=== PATIENT | female | born 1965 | race Caucasian/White ===

== ENCOUNTER 2021-01-21 17:20 | Emergency (ER) | payer OTHER ==
[~2021-01-21] VITALS: Ht 165.1 cm; Wt 86.2 kg
[2021-01-21] MEDS ORDERED: ATORVASTATIN CA40 MG PO (17:50)
[2021-01-21] MEDS ORDERED: ADVAIR HFA 115-12 GM (17:50)
[2021-01-21] MEDS ORDERED: VENTOLIN HFA18 GM INH (17:50)
[2021-01-21] MEDS ORDERED: AMLODIPINE BESYL5 MG PO (17:50)
[2021-01-21] MEDS ORDERED: FLUTICASONE PRO16 GM NAS (17:51)
[2021-01-21] MEDS ORDERED: HYDROXYZINE HCL25 MG PO (17:51)
[2021-01-21] MEDS ORDERED: LEVOTHYROXINE175 MCG PO (17:51)
[2021-01-21] MEDS ORDERED: CARVEDILOL6.25 MG PO (17:51)
[2021-01-21] MEDS ORDERED: GLYBURIDE5 MG PO (17:51)
[2021-01-21] MEDS ORDERED: LO-DOSE ASPIRIN81 MG PO (17:52)
[2021-01-21] MEDS ORDERED: VITAMIN D21250 MCG (17:52)
[2021-01-21] MEDS ORDERED: NYSTATIN-TRIAMC15 GM (17:52)
[2021-01-21] MEDS ORDERED: CHANTIX1 MG PO (17:52)
[2021-01-21] MEDS ORDERED: LISINOPRIL10 MG PO (17:52)
[2021-01-21] MEDS ORDERED: METFORMIN HCL1000 MG PO (17:52)
[2021-01-21] MEDS ORDERED: ZOFRAN4 MG PO (19:59)
== END 2021-01-21 20:08 | disposition home or self-care (01) ==
LOC: ED 17:20
DX: K52.9 Noninfective gastroenteritis and colitis, unspecified (principal); Z20.822 Contact with and (suspected) exposure to COVID-19; I25.2 Old myocardial infarction; E11.9 Type 2 diabetes mellitus without complications; I10 Essential (primary) hypertension; F17.200 Nicotine dependence, unspecified, uncomplicated; Z86.73 Personal history of transient ischemic attack (TIA), and cerebral infarction without residual deficits; Z88.0 Allergy status to penicillin; Z79.899 Other long term (current) drug therapy; Z79.84 Long term (current) use of oral hypoglycemic drugs; Z79.82 Long term (current) use of aspirin
CPT/HCPCS: 71045; 80053; 81001; 83735; 85025; 96374; 96376; 99284-25; C9803; J2405; J7030; U0003

== ENCOUNTER 2021-06-22 15:28 | Emergency (ER) | payer OTHER ==
[~2021-06-22] VITALS: Ht 165.1 cm; Wt 77.1 kg
[~2021-06-22 15:28] MED LIST: ADVAIR HFA 115-12 GM; AMLODIPINE BESYL5 MG PO; ATORVASTATIN CA40 MG PO; CARVEDILOL6.25 MG PO; CHANTIX1 MG PO; FLUTICASONE PRO16 GM NAS; GLYBURIDE5 MG PO; HYDROXYZINE HCL25 MG PO; LEVOTHYROXINE175 MCG PO; LISINOPRIL10 MG PO; LO-DOSE ASPIRIN81 MG PO; METFORMIN HCL1000 MG PO; NYSTATIN-TRIAMC15 GM; VENTOLIN HFA18 GM INH; VITAMIN D21250 MCG; ZOFRAN4 MG PO
[2021-06-22] MEDS ORDERED: PROZAC20 MG PO (15:55)
[2021-06-22] MEDS ORDERED: REGLAN10 MG PO (17:47)
[2021-06-22] MEDS ORDERED: ONDANSETRON ODT8 MG PO (17:47)
== END 2021-06-22 18:46 | disposition home or self-care (01) ==
LOC: ED 15:28
DX: K29.00 Acute gastritis without bleeding (principal); E11.9 Type 2 diabetes mellitus without complications; I10 Essential (primary) hypertension; I25.2 Old myocardial infarction; Z86.73 Personal history of transient ischemic attack (TIA), and cerebral infarction without residual deficits; Z85.850 Personal history of malignant neoplasm of thyroid; F17.200 Nicotine dependence, unspecified, uncomplicated; Z88.0 Allergy status to penicillin; Z79.51 Long term (current) use of inhaled steroids; Z79.899 Other long term (current) drug therapy; Z79.84 Long term (current) use of oral hypoglycemic drugs; Z79.890 Hormone replacement therapy; Z79.82 Long term (current) use of aspirin
CPT/HCPCS: 80053; 81001; 83690; 85025; 96374; 96375; 99284-25; J1790; J2405; J7030

== ENCOUNTER 2021-06-25 19:39 | Emergency (ER) | payer OTHER ==
[~2021-06-25] VITALS: Ht 165.1 cm; Wt 73.6 kg
[~2021-06-25 19:39] MED LIST changes: +ONDANSETRON ODT8 MG PO; +PROZAC20 MG PO; +REGLAN10 MG PO
--- OUTSIDE RECORDS SUMMARY | 2021-06-25 19:40 | XMS ---
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 E.D. VISIT COUNT (12 MO.) 1 [facility] TOTAL 4 NOTE: Visits indicate total known visits. ED/UCC VISIT TRACKING (12 MO.) 06/25/2021 19:39 [facility] [place] TYPE: Emergency COMPLAINT: - WEAKNESS 06/22/2021 15:29 [facility] [place] TYPE: Emergency COMPLAINT: - N/V 01/21/2021 17:22 [facility] [place] TYPE: Emergency COMPLAINT: - VOMITING, DIARRHEA DIAGNOSES: - medical terminologist (current) use of oral hypoglycemic drugs - Allergy status to penicillin - Noninfective gastroenteritis and colitis, unspecified - Nicotine dependence, unspecified, uncomplicated - medical terminologist (current) use of aspirin - Essential (primary) hypertension - Type 2 diabetes mellitus without complications - Personal history of transient ischemic attack (TIA), and cerebral infarction without residual deficits - Old myocardial infarction - Other terminal operations supervisor (current) drug therapy - Nausea with vomiting, unspecified [facility] DIAGNOSES: - Unspecified abdominal pain - BLEEDING IN RECTUM, VOMITING - Nausea with vomiting, unspecified INPATIENT VISIT TRACKING (12 MO.) No inpatient visits to display in this time frame [email or web address]
[2021-06-26] MEDS ORDERED: CAPSAICIN60 GM TOP (01:25)
--- NOTE | 2021-06-28 11:25 | EKG ---
[facility] [address] [facility] [place] [address] Signed Sinus rhythm with premature supraventricular complexes Possible Anterolateral infarct , age undetermined Abnormal ECG No previous ECGs available Confirmed by PEREZ MONTEMAYOR MD ([id number]) on 06/28/2021 11:25:10 AM Electronically Signed By: PEREZ MONTEMAYOR MD 06/28/21 1125 PATIENT NAME: MAGDI MADRIGAL MARIA EUGENIA Electrocardiogram DATE OF : 63 PHYSICIAN: PEREZ MONTEMAYOR MD REPORT #: [id number] REPORT IS CONFIDENTIAL AND NOT TO BE RELEASED WITHOUT AUTHORIZATION
== END 2021-06-26 01:45 | disposition home or self-care (01) ==
LOC: ED 19:39
DX: E11.65 Type 2 diabetes mellitus with hyperglycemia (principal); N17.9 Acute kidney failure, unspecified; R11.2 Nausea with vomiting, unspecified; Z86.73 Personal history of transient ischemic attack (TIA), and cerebral infarction without residual deficits; I25.2 Old myocardial infarction; I10 Essential (primary) hypertension; Z85.850 Personal history of malignant neoplasm of thyroid; F17.200 Nicotine dependence, unspecified, uncomplicated; Z88.0 Allergy status to penicillin; Z88.6 Allergy status to analgesic agent; Z79.51 Long term (current) use of inhaled steroids; Z79.84 Long term (current) use of oral hypoglycemic drugs; Z79.890 Hormone replacement therapy; Z79.82 Long term (current) use of aspirin; Z20.822 Contact with and (suspected) exposure to COVID-19
CPT/HCPCS: 71045; 80048; 80053; 81001; 82010; 82803; 84484; 85025; 93005; 93010; 96374; 96375; 99285-25; C9803; J1790; J1815; J2405; J7121; U0003

== ENCOUNTER 2021-09-10 18:32 | Emergency (ER) | payer OTHER ==
[~2021-09-10] VITALS: Ht 165.1 cm; Wt 73.5 kg
[~2021-09-10 18:32] MED LIST changes: -ADVAIR HFA 115-12 GM; +ADVAIR HFA 115-12 GM INH; +CAPSAICIN60 GM TOP; -PROZAC20 MG PO
[2021-09-10] MEDS ORDERED: ONDANSETRON ODT8 MG PO (22:45)
== END 2021-09-10 23:03 | disposition home or self-care (01) ==
LOC: ED 18:32
DX: E11.65 Type 2 diabetes mellitus with hyperglycemia (principal); Z20.822 Contact with and (suspected) exposure to COVID-19; E11.9 Type 2 diabetes mellitus without complications; I10 Essential (primary) hypertension; I25.2 Old myocardial infarction; F17.200 Nicotine dependence, unspecified, uncomplicated; Z88.0 Allergy status to penicillin; Z88.8 Allergy status to other drugs, medicaments and biological substances; Z79.899 Other long term (current) drug therapy; Z79.84 Long term (current) use of oral hypoglycemic drugs; Z79.82 Long term (current) use of aspirin
CPT/HCPCS: 36415; 74177; 80053; 81001; 82010; 82803; 83605; 83690; 85025; 96375; 96376; 99284-25; A9270; C9803; J1170; J1815; J2270; J2405; J7030; Q9967; U0003

== ENCOUNTER 2021-09-11 20:04 | Inpatient (IN) | payer OTHER ==
[~2021-09-11] VITALS: Ht 165.1 cm; Wt 75.3 kg
--- OUTSIDE RECORDS SUMMARY | 2021-09-11 20:12 | XMS ---
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 E.D. VISIT COUNT (12 MO.) 5 [facility] TOTAL 5 NOTE: Visits indicate total known visits. ED/UCC VISIT TRACKING (12 MO.) 09/11/2021 20:04 [facility] [place] TYPE: Emergency COMPLAINT: - ABDOMINAL PAIN 09/10/2021 18:33 [facility] [place] TYPE: Emergency COMPLAINT: - FEVER, DEHYDRATION 06/25/2021 19:39 [facility] [place] TYPE: Emergency COMPLAINT: - WEAKNESS DIAGNOSES: - Allergy status to penicillin - Nicotine dependence, unspecified, uncomplicated - Hormone replacement therapy - Allergy status to analgesic agent - Headache, unspecified - Essential (primary) hypertension - Nausea with vomiting, unspecified - Old myocardial infarction - Dizziness and giddiness - Personal history of transient ischemic attack (TIA), and cerebral infarction without residual deficits - FDC (current) use of oral hypoglycemic drugs - continuous churn buttermaker (current) use of inhaled steroids - Contact with and (suspected) exposure to COVID-19 - Acute kidney failure, unspecified - Personal history of malignant neoplasm of thyroid - FDC (current) use of aspirin - Type 2 diabetes mellitus with hyperglycemia 06/22/2021 15:29 [facility] [place] TYPE: Emergency COMPLAINT: - N/V DIAGNOSES: - Hormone replacement therapy - Personal history of malignant neoplasm of thyroid - FDC (current) use of oral hypoglycemic drugs - Essential (primary) hypertension - Personal history of transient ischemic attack (TIA), and cerebral infarction without residual deficits - Other intermission coordinator (current) drug therapy - Old myocardial infarction - continuous churn buttermaker (current) use of aspirin - Allergy status to penicillin - FDC (current) use of inhaled steroids - Type 2 diabetes mellitus without complications - Acute gastritis without bleeding - Nicotine dependence, unspecified, uncomplicated - Vomiting, unspecified 01/21/2021 17:22 [facility] [place] TYPE: Emergency COMPLAINT: - VOMITING, DIARRHEA DIAGNOSES: - continuous churn buttermaker (current) use of oral hypoglycemic drugs - Allergy status to penicillin - Noninfective gastroenteritis and colitis, unspecified - Nicotine dependence, unspecified, uncomplicated - FDC (current) use of aspirin - Essential (primary) hypertension - Type 2 diabetes mellitus without complications - Personal history of transient ischemic attack (TIA), and cerebral infarction without residual deficits - Old myocardial infarction - Other intermission coordinator (current) drug therapy - Nausea with vomiting, unspecified INPATIENT VISIT TRACKING (12 MO.) No inpatient visits to display in this time frame [email or web address]
--- NOTE | 2021-09-11 23:34 | NUR ---
RECIEVED REPORT FROM ED RN, RECEIVED PATIENT, PT TRANSFERRED TO BED VIA SBA, PT CONNECTED TO MONITOR, VITAL SIGNS OBTAINED, ADMISSION AND ASSESSMENT COMPLETED, MEDS GIVEN PER MAR, EDUCATION REGARDING FALL SAFETY, MEDICATIONS, EQUIPEMENT, BED, AND CALL LIGHT GIVEN TO PT, PT STATES UNDERSTANDING
--- NOTE | 2021-09-12 00:27 | NUR ---
PT C/O PAIN AND THROWING UP, MEDS GIVEN PER MAR, ASSISTED PT TO RESTROOM TO VOID, BACK IN MED, SCHEDULED MEDS GIVEN PER MAR, ORDERS REVIEWED. PT NOW COMFORTABLE IN BED WITH CALL LIGHT IN REACH
--- NOTE | 2021-09-12 02:33 | NUR ---
PT RESTING, FLUIDS INFUSING, VITALS WNL, BED IN LOWEST POSITION, CALL LIGHT WITHIN REACH, WILL CONTINUE TO MONITOR
--- NOTE | 2021-09-12 07:45 | NUR ---
OOB TO COMMODE TO VOID LARGE AMOUNT OF URINE. BACK TO BE W/O INCIDENT. TALKED WITH PATIENT ABOUT POC FOR DAY, INDICATES UNDERSTANDING.
--- NOTE | 2021-09-12 08:00 | NUR ---
ASSESSMENT DONE. SITTING UP IN BED FOR BREAKFAST. ACCUCHECK-253, 5 UNITS INSULIN GIVEN.
--- NOTE | 2021-09-12 09:22 | NUR ---
MEDICATED WITH MORPHINE AND OXYCODONE FOR PAIN, RATES 01/16, MARRUFO,ABD,BACK,GENERAL. TOOK BREAKFAST POOR. C/O UPSET STOMACH. IV PATENT. UP TO COMMODE FREQUENTLY.
--- NOTE | 2021-09-12 09:22 | NUR ---
Short visit with pt. Pt states she lives in [place], address in chart is [place]. Pt does not remember her current address. Pt now living in a trailer in [place]. She also has a pcp that is not listed. Her PCP is Mary Gutiérrez at [facility] in [place]. Pt is not feel ing well so converstation ended and I follow up when she feels better.
--- NOTE | 2021-09-12 13:12 | NUR ---
TOOK LUNCH FAIR. STATES SHE FEELS BETTER NOW. TRANSFER ORDERS RECIEVED.
--- NOTE | 2021-09-12 13:47 | NUR ---
PATIENT AWAKE IN BED, VITALS AND I&OS CHARTED. CALL LIGHT IN EASY REACH
--- NOTE | 2021-09-12 15:46 | NUR ---
PATIENT TO MED SURG ROOM 116. VITALS ARE STABLE. PATIENT DENIES PAIN, IVF IS INFUSING.
[2021-09-12] MEDS ORDERED: PROZAC20 MG PO (18:42)
--- NOTE | 2021-09-12 18:46 | NUR ---
medications reconciled using pharmacy records and patient interview, that was limited and interrupted with bouts of forceful emesis. To note, may possibly be related, patient seen in the ED 06/26/21 and prescribed capsaicin cream for cannabis hyperemesis syndrome
--- NOTE | 2021-09-12 18:51 | NUR ---
PATIENT C/O NAUSEA, REQUESTING ANTIEMETIC. ANTIEMETIC GIVEN, AUBILE UPPER RESPITORY WHEEZING WAS ALSO NOTED, ASKED THE PATIENT IF SHE NEEDED A NEBULIZER TREATMENT AND SHE DECLINED.
--- NOTE | 2021-09-12 19:37 | NUR ---
PAIN AT A 10, STILL RETCHING/DRY HEAVING. MORPHINE iv GIVEN AND COMPAZINE iv GIVEN, APPROXIMATELY 30 MINUTES AFTER iv ZOFRAN GIVEN
--- NOTE | 2021-09-12 19:40 | NUR ---
SHIFT REPORT RECEIVED FROM TRINIDAD PENNINGTON AT BEDSIDE. pt AWAKE AND IN BED, TRINIDAD PENNINGTON ALREADY IN ROOM AND MEDICATING pt WITH PRN PAIN AND PRN NAUSEA MEDICATIONS, SEE EMAR. pt SITTING UPRIGHT, FLAT AFFECT NOTED. BED ALARMON FOR SAFETY AND pt EDUCATED TO CALL BEFORE GETTING OOB FOR SAFETY. pt VERBALIZED UNDERSTANDING. IV SITE WNL, FLUIDS INFUSING DIRECTED. BOARD UPDATED, WILL MONITOR.
--- NOTE | 2021-09-12 20:15 | NUR ---
ROUNDED ON pt, pt RESTING IN BED WITH EYES CLOSED. NO DISTRESS NOTED, pt AWOKE TO VOICE. REPORTS WITH "YEAH" WHEN ASKED IF SHE FEELS BETTER. WILL CONTINUE TO MONITOR, CALL LIGHT IN REACH. IV PUMP ALARMING, ISSUE RESOLVED.
--- NOTE | 2021-09-12 21:10 | NUR ---
BED ALARM SET OFF, THIS NANOTECHNOLOGY TECHNICIAN AND RN INTO RM, REMINDED PT TO CALL, PT UP TO THE TOILET, SBA BACK TO BED WITH IV POLE, BED ALARM SET
--- NOTE | 2021-09-12 22:30 | NUR ---
ASSESSMENT COMPLETE, SCHEDULED MEDS GIVNE (SEE EMAR). pt DROWSY, EASILY AWAKENS TO VOICE. VSS, SBP ELEVATED BUT WITHIN PARAMETERS- SCHEDULED BP MEDICATION GIVEN. pt DENIES BOTH PAIN AND NAUSEA AND REPORTS INTERVENTIONS AT SHIFT CHANGE RESOLVED ISSUES. WILL MONITOR. IV ABX INFUSING DIRECTED, IV SITE WNL. BED ALARM ON FOR SAFETY AND CALL LIGHT IN REACH.
--- NOTE | 2021-09-12 23:46 | NUR ---
CALL LIGHT ANSWERED, pt UP SBA TO VOID AND BACK IN BED. STEADY ON FEET. BED ALRM RESUMED AND FRESH ICE WATER PROVIDED. NO FURTHER NEEDS. CALL LIGHT IN REACH.
--- NOTE | 2021-09-13 00:45 | NUR ---
ROUNDED ON pt, pt RESTING QUIETLY IN BED WITH EYES CLOSED. RR EVEN AND UNLABORED. NO DISTRESS NOTED. CALL LIGHT IN REACH AND BED ALARM REMAINS ON FOR SAFETY.
--- NOTE | 2021-09-13 03:10 | NUR ---
rounded on pt, pt resting in bed with eyes closed. rr even and unlabored. bed alarm remains on and call light in reach. iv fluids continue to infuse as directed.
--- NOTE | 2021-09-13 03:20 | NUR ---
BED ALARM SET OFF, PT SBA TO BATHROOM WITH IV POLE, BACK TO BED, REMINDED TO CALL BEFORE GETTING UP
--- NOTE | 2021-09-13 03:47 | NUR ---
CALL LIGHT ANSWERED, IV PUMP ALARMING. ISSUE RESOLVED. IV SITE WNL. ASSESSMENT COMPLETE, pt REPORTS 8/10 PAIN AND SOME NAUSEA, PRN PAIN AND PRN NAUSEA MEDICATION BOTH GIVEN-SEE EMAR. pt A/O TO ALL BUT DATE, REORIENTED. BED ALRM REAMINS ON FOR SAFETY. CALL LIGHT IN REACH. ADDITIONAL BLANKET PROVIDED. NO FURTHER NEEDS. WILL MONITOR.
--- NOTE | 2021-09-13 05:11 | NUR ---
SCHEDULED THYROID MEDICATION GIVEN, SEE EMAR. pt CURRENTLY DENEIS BOTH PAIN AND NAUSEA. IV SITE WNL, FLUIDS INFUSING DIRECTED. BED ALARM ON FOR SAFETY AND CALL LIGHT IN REACH. FRESH WATER ALSO PROVIDED. VSS AND I&O'S COMPLETE.
--- NOTE | 2021-09-13 10:56 | NUR ---
Compazine mg IV admin for reports of nasuea.
--- NOTE | 2021-09-13 12:05 | NUR ---
Patient resting in bed, alert and oriented x4. Patient denies pain at this time. IV site patent, infusing iv fluids per provider order. No current needs. Personal supplies and call light within reach.
--- NOTE | 2021-09-13 14:45 | NUR ---
Spoke with pt and she plans on dc tomorrow. Denies needs.
--- NOTE | 2021-09-13 15:12 | NUR ---
Tylenol 500mg po admin for reports of head pain.
--- NOTE | 2021-09-13 16:37 | NUR ---
Patient watching tv, no distress. Patient reports her head pain has subsided. No current needs. Personal supplies and call light within reach.
--- NOTE | 2021-09-13 19:25 | NUR ---
SHIFT REPORT RECEIVED FROM DAYSHIFT ÁNGEL ISSA AT BEDSIDE. pt AWAKE AND RESTING IN BED, DENIES NEEDS OR CONCERNS. BOARD UPDATED AND CALL LIGHT IN REACH. pt ON RA, RR EVEN AND UNLABORED. NO DISTRESS NOTED.
--- NOTE | 2021-09-13 21:39 | NUR ---
ASSESSMENT COMPLETE, SCHEDULED MEDS GIVEN- SEE EMAR. pt AWAKE AND RESTING IN BED. IV SITE SALINE LOKCED, LEAKING. SITE REDRESSED AND REASSESSED, ISSUE RESOLVED. pt DENEIS PAIN AT IV SITE, WILL MONITOR. IV ABX INFUSIGN DIRECTED. pt DENIES PAIN AND NAUSEA. VSS, I&O'S COMPLETE. NO FURTHER NEEDS, CALL LIGHT IN REACH.
--- NOTE | 2021-09-13 21:58 | NUR ---
PT CALLED ASKING FOR HER IV TO BE WRAPPED UP. IV IS INFUSING FINE, PT DENIES FURTHER NEEDS AND CALL LIGHT IS CLOSE.
--- NOTE | 2021-09-13 22:50 | NUR ---
pt asking for something to sleep, on phone with dr aguirre. dr aguirre to place orders for sleep aid. no orders for am labs, md aware and no new orders for am labs at this time.
--- NOTE | 2021-09-13 23:00 | NUR ---
PRN MELATONIN GIVEN, SEE EMAR. FRESH ICE WATER PROVIDED. NO FURTHER NEEDS OR CONCERNS. TOILET HAT ALSO EMPTIED. CALL LIGHT IN REACH.
--- NOTE | 2021-09-13 23:49 | NUR ---
IV PUMP BEEPING, ISSUE RESOLVED. IV ABX COMPLETE, SITE REMAINS WNL. pt REPORTS NAUSEA, FLOAT RN TO ADMINISTER PRN NAUSEA MEDICATION. NO FURTHER NEEDS, CALL LIGHT REMAINS IN REACH FOR SAFETY.
--- NOTE | 2021-09-14 01:08 | NUR ---
ROUNDED ON pt, pt AWAKE AND RESTING IN BED. ON RA- RR EVEN AND UNLABORED. NO DISTRESS NOTED. CALL LIGHT IN REACH AND pt DENIES NEEDS OR CONCERNS. WILL MONITOR FOR CHANGES.
--- NOTE | 2021-09-14 01:20 | NUR ---
CALL LIGHT ANSWERED, pt AWAKE AND REPORTS NAUSEA. pt REORTS SHE RECENTLY GOT OOB TO VOID- THINKS COREY SHE COULD HAVE GOTTEN UP TOO FAST. SPRITE AND CRACKERS PROVIDED ALONG WITH FRESH WATER. pt LEFT IN BED, WATCHING TV. NO DISTRESS NOTED. WILL MONITOR, CALL LIGHT LEFT IN REACH ALONG WITH OTHER PERSONAL BELONGINGS.
--- NOTE | 2021-09-14 03:18 | NUR ---
rounded on pt, pt resting in bed, laying on her right side. remains on ra, rr even and unlabored. no distress noted, will continue to monitor. call light in reach.
--- NOTE | 2021-09-14 04:40 | NUR ---
PT REQUESTED ICE WATER, IN TO GET VS, I&Os, NO FURTHER NEEDS AT THIS TIME
--- NOTE | 2021-09-14 04:57 | NUR ---
assessment complete, no acute changes. scheduled thyroid medication given, see emar. pt awake and resting in bed, very interactive and friendly with returns clerk this morning. no further needs or concerns verbalized, call light in reach.
--- NOTE | 2021-09-14 06:37 | NUR ---
INFORMED BY BULK PIGMENT REDUCER pt WAS HAVING SOME NAUSEA, CRACKERS PROVIDED TO pt BY BULK PIGMENT REDUCER. IN ROOM TO ASSESS FURTHER, pt FOUND RESTING IN BED WITH EYES CLOSED. RR EVEN AND UNLABORED, RATE 16-18. NO DISTRESS NOTED, WILL ALLOW pt TO REST AND CONTINUE TO SLEEP. CALL LIGHT REMAINS IN REACH.
--- NOTE | 2021-09-14 08:07 | NUR ---
Patient resting in bed, eyes closed, respirations even and non labored. Patient has no notable distress. HOB elevated at 45 degrees. Personal supplies and call light within reach.
--- NOTE | 2021-09-14 08:09 | NUR ---
Patient resting in bed, eyes closed, respirations even and non labored. Patient has no notable distress. Personal supplies and call light within reach.
--- NOTE | 2021-09-14 10:35 | NUR ---
Christiano was offerd a shower, refused due to if she goes home today
--- NOTE | 2021-09-14 10:52 | NUR ---
DIABETES EDUCATION CONSULT ENTERED BUT CANOPY STRINGER IS NOT HERE. I SPOKE WITH PATIENT ABOUT EATING TO CONTROL HER DIABETES. SHE DOESN'T EAT MUCH UNTIL 7 PM. SHE MIGHT NIBBLE ON SOMETHING BUT HER MAIN MEAL IS IN THE EVENING. SHE DRINKS REGULAR PEPSI AND SEEMS WILLING TO SWITCH TO DIET. I EXPLAINED THAT SHE WILL NEED TO EAT MORE OFTEN IF SHE HAS TO TAKE INSULIN (HER AIC IS 12.3%). PROVIDED SOME SNACK IDEAS. I EXPLAINED THAT SHE NEEDS TO HAVE A PROTEIN FOOD WHEN SHE EATS A CARBOHYDRATE FOOD, EXAMPLE RICE AND CHICKEN. IDEALLY HER DINNER MEAL SHOULD INCLUDE NON-STARCHY VEGGIES. THE PLATE PICTURE WAS PROVIDED ALONG WITH A HANDOUT FROM THE NC ON CARBOHYDRATE COUNTING. I SUGGESTED SHE STICK TO 45-60 GM CARBS PER MEAL. SHE APPRECIATED MY TIME AND WILL NEED REINFORCEMENT DOWN THE ROAD. MY NAME AND OFFICE NUMBER PROVIDED.
[2021-09-14] MEDS ORDERED: LEVOFLOXACIN750 MG PO (11:20)
[2021-09-14] MEDS ORDERED: CALCIUM 600-VI1 EAC7 PO (11:22)
[2021-09-14] MEDS ORDERED: LANTUS SOL100 UNIT/1 SUB-Q (11:23)
[2021-09-14] MEDS ORDERED: BLOOD GLUCOSE1 EAC1 MISC (11:24)
[2021-09-14] MEDS ORDERED: INSULIN PEN NE1 EACH MISC (11:24)
[2021-09-14] MEDS ORDERED: BLOOD GLUCOSE1 EAC8 MISC (11:25)
[2021-09-14] MEDS ORDERED: LANCETS1 EACH MISC (11:26)
--- NOTE | 2021-09-15 14:57 | NUR ---
Blood culture L AC positive for S epi, sensitive to levofloxacin ordered
[2022-01-09] MEDS ORDERED: HYDROCODON-ACE1 EA10 PO (22:41)
== END 2021-09-14 12:55 | disposition home or self-care (01) | DRG 690 ==
LOC: ED 20:04 → CCU 22:22 → MS 09-12 15:40
PROVIDERS: ADMIT Internal Medicine; ATTEND Internal Medicine
DX: N10 Acute pyelonephritis (principal); E87.6 Hypokalemia; E83.42 Hypomagnesemia; K76.0 Fatty (change of) liver, not elsewhere classified; E55.9 Vitamin D deficiency, unspecified; E83.51 Hypocalcemia; E11.65 Type 2 diabetes mellitus with hyperglycemia; I10 Essential (primary) hypertension; I25.10 Atherosclerotic heart disease of native coronary artery without angina pectoris; E03.9 Hypothyroidism, unspecified; F39 Unspecified mood [affective] disorder; I25.2 Old myocardial infarction; F17.210 Nicotine dependence, cigarettes, uncomplicated; Z88.0 Allergy status to penicillin; Z88.8 Allergy status to other drugs, medicaments and biological substances; Z79.82 Long term (current) use of aspirin; Z79.84 Long term (current) use of oral hypoglycemic drugs; Z79.899 Other long term (current) drug therapy
CPT/HCPCS: 36415; 71045; 80048; 80053; 81001; 82010; 82040; 82306; 82803; 83036; 83605; 83690; 83735; 83880; 85025; 87040; 87077; 87186; 87536; 94640; 94760; 96374; 96375; 99285-25; A9270; J0780; J1650; J1790; J1815; J1956; J2270; J2405; J3475; J3480; J7120; J7121

== ENCOUNTER 2022-07-09 16:59 | Emergency (ER) | payer OTHER ==
[~2022-07-09] VITALS: Ht 165.1 cm; Wt 87.6 kg
[~2022-07-09 16:59] MED LIST changes: +BLOOD GLUCOSE1 EAC1 MISC; +BLOOD GLUCOSE1 EAC8 MISC; +CALCIUM 600-VI1 EAC7 PO; +HYDROCODON-ACE1 EA10 PO; +INSULIN PEN NE1 EACH MISC; +LANCETS1 EACH MISC; +LANTUS SOL100 UNIT/1 SUB-Q; +LEVOFLOXACIN750 MG PO; +PROZAC20 MG PO
[2022-07-09] MEDS ORDERED: CEPHALEXIN500 M1 PO (20:14)
== END 2022-07-09 21:02 | disposition home or self-care (01) ==
LOC: ED 16:59
DX: H66.91 Otitis media, unspecified, right ear (principal); I25.2 Old myocardial infarction; E11.9 Type 2 diabetes mellitus without complications; I10 Essential (primary) hypertension; F17.200 Nicotine dependence, unspecified, uncomplicated; Z86.73 Personal history of transient ischemic attack (TIA), and cerebral infarction without residual deficits; Z88.0 Allergy status to penicillin; Z88.6 Allergy status to analgesic agent; Z79.899 Other long term (current) drug therapy; Z79.82 Long term (current) use of aspirin; Z79.84 Long term (current) use of oral hypoglycemic drugs
CPT/HCPCS: 99282; A9270

== ENCOUNTER 2023-03-23 14:40 | Emergency (ER) | payer OTHER ==
[~2023-03-23] VITALS: Ht 162.6 cm; Wt 69.8 kg
[~2023-03-23 14:40] MED LIST changes: +CEPHALEXIN500 M1 PO
[2023-03-23 15:22] LABS: BASOPHILS 0.9 % (0-2); EOSINOPHILS 1.7 % (0-6); HEMATOCRIT 38.2 % (35.0-50.0); HEMOGLOBIN 12.8 g/dL (12.0-18.0); LYMPHOCYTES 23.7 % (24-44); MCH 28.9 (27-36); MCHC 33.5 g/dl (30-36); MCV 86.2 fl (81-99); MONOCYTES 4.6 % (0-12); NEUTROPHILS 69.1 % (39-80); PLATELET COUNT 383 K/uL (140-440); RBC 4.43 M/ul (4.3-5.7); RDW 15.6 (10.5-15.0)
[2023-03-23 15:35] LABS: BILIRUBIN, URINE NEGATIVE (negative); BLOOD/HGB, URINE NEGATIVE (Negative); KETONE, URINE NEGATIVE (Negative); LEUK ESTERASE, URINE NEGATIVE (negative); NITRITE, URINE NEGATIVE (negative); PH, URINE 5.5 (5-7)
[2023-03-23 15:37] LABS: ALBUMIN 4.1 g/dL (3.4-5.0); ALBUMIN/GLOBULIN RATIO 1.17 (1.1-2.4); ANION GAP 15.2 (7-21); BILIRUBIN, TOTAL 0.5 ng/dL (0.2-1.0); BUN/CREATININE RATIO 18.66 (6.0-28.6); CALCIUM 9.2 mg/dL (8.5-10.1); CREATININE, SERUM 0.75 mg/dL (0.55-1.02); POTASSIUM 4.2 mmol/L (3.5-5.1); PROTEIN, TOTAL 7.6 g/dL (6.4-8.2)
[2023-03-23 17:54] VITALS: BP 111/71
== END 2023-03-23 17:55 | disposition home or self-care (01) ==
LOC: ED 14:40
PROVIDERS: Emergency Medicine
DX: R10.814 Left lower quadrant abdominal tenderness (principal); N20.0 Calculus of kidney; I25.2 Old myocardial infarction; E11.9 Type 2 diabetes mellitus without complications; I10 Essential (primary) hypertension; F17.200 Nicotine dependence, unspecified, uncomplicated; Z86.73 Personal history of transient ischemic attack (TIA), and cerebral infarction without residual deficits; Z88.0 Allergy status to penicillin; Z88.6 Allergy status to analgesic agent; Z79.4 Long term (current) use of insulin; Z79.82 Long term (current) use of aspirin; Z79.84 Long term (current) use of oral hypoglycemic drugs
CPT/HCPCS: 36415; 74177; 80053; 81003; 85025; J1170; J2405; J7030; Q9967